=== PATIENT | female | born 1965 | race Hispanic/Latino ===

== ENCOUNTER 2019-02-26 22:31 | Emergency (ER) | payer OTHER ==
[2019-02-26] MEDS ORDERED: ASPIRIN 81MG TAB.CHEW ONE (22:56)
[2019-02-26 23:12] LABS: APPEARANCE,URINE Cloudy (CLEAR); BILIRUBIN,URINE Negative (NEGATIVE); COLOR,URINE Yellow (YELLOW); GLUCOSE, URINE (UA) Negative (NEGATIVE); KETONES,URINE Negative (NEGATIVE); LEUKOCYTE ESTERASE ,URINE Large (NEGATIVE); NITRATE,URINE Negative (NEGATIVE); OCCULT BLOOD,URINE Negative (NEGATIVE); PROTEIN,URINE Negative (NEGATIVE); UROBILINOGEN,URINE 0.2 mg/dL (0.2-1.0)
[2019-02-26 23:19] LABS: BASOPHILS % (AUTO) 0.4 % (0.0-5.0); EOSINOPHILS % (AUTO) 3.4 % (0.0-8.0); LYMPHOCYTES % (AUTO) 32.2 % (21.0-51.0); MEAN CORPUSCULAR HEMOGLOBIN 27.6 pg (27.0-33.0); MEAN CORPUSCULAR HGB CONC 30.9 g/dL (32.0-36.0); MEAN CORPUSCULAR VOLUME 89.4 fL (79-99); MONOCYTES % (AUTO) 5.4 % (3.0-13.0); NEUTROPHILS % (AUTO) 58.3 % (40.0-77.0); PLATELET COUNT (AUTO) 187 K/uL (130-400); RED BLOOD CELL COUNT(AUTO) 4.92 MIL/uL (4.00-5.50); RED CELL DISTRIBUTION WIDTH 13.1 % (11.0-15.5); WHITE BLOOD COUNT (AUTO) 9.5 K/uL (4.8-10.8)
[2019-02-26 23:21] LABS: BACTERIA,URINE Few /HPF (None Seen); RBC,URINE None Seen /HPF (0-1); SQUAMOUS EPITHELIAL CELL,UR Rare /HPF (0-2)
[2019-02-27] MEDS ORDERED: CEPHALEXIN 500 MG CAPSULE ONE
[2019-02-27 00:07] LABS: ALBUMIN 3.7 g/dL (3.5-5.0); BILIRUBIN,TOTAL 0.7 mg/dL (0.2-1.0); CREATININE 0.8 mg/dL (0.5-1.5); POTASSIUM 3.8 mmol/L (3.5-5.1); TOTAL PROTEIN, SERUM 7.9 g/dL (6.0-8.3)
== END 2019-02-27 00:10 | disposition home or self-care (01) ==
LOC: EDH 22:31
DX: N39.0 Urinary tract infection, site not specified (principal); R07.89 Other chest pain; F32.9 Major depressive disorder, single episode, unspecified; I10 Essential (primary) hypertension
CPT/HCPCS: 36415; 71045; 80053; 81001; 82550; 84484; 85025; 93005

== ENCOUNTER 2023-02-24 09:30 | Emergency (ER) | payer MEDICAID ==
[~2023-02-24] VITALS: Ht 157.5 cm; Wt 59.0 kg
[2023-02-24 10:15] LABS: BASOPHILS # (AUTO) 0.02 K/uL (0.00-0.20); BASOPHILS % (AUTO) 0.3 % (0.0-5.0); EOSINOPHILS # (AUTO) 0.08 K/uL (0.00-0.70); EOSINOPHILS % (AUTO) 1.4 % (0.0-8.0); HEMATOCRIT 40.9 % (36-48); IMMATURE GRANULOCYTE ABSOLUTE 0.03 K/uL (0-1); LYMPHOCYTES # (AUTO) 1.3 K/uL (1.0-4.8); LYMPHOCYTES % (AUTO) 21.9 % (21.0-51.0); MEAN CORPUSCULAR HEMOGLOBIN 30.6 pg (27.0-33.0); MEAN CORPUSCULAR HGB CONC 33.3 g/dL (32.0-36.0); MEAN CORPUSCULAR VOLUME 91.9 fL (79-99); MONOCYTES # (AUTO) 0.2 K/uL (0.1-1.0); MONOCYTES % (AUTO) 3.5 % (3.0-13.0); NEUTROPHILS # (AUTO) 4.2 K/uL (1.8-7.7); NEUTROPHILS % (AUTO) 72.4 % (40.0-77.0); PLATELET COUNT (AUTO) 141 K/uL (130-400); RED BLOOD CELL COUNT(AUTO) 4.45 MIL/uL (4.00-5.50); RED CELL DISTRIBUTION WIDTH 12.7 % (11.0-15.5); WHITE BLOOD COUNT (AUTO) 5.8 K/uL (4.8-10.8)
[2023-02-24] MEDS ORDERED: FLUO20TA29 PO (10:18)
[2023-02-24] MEDS ORDERED: TRAZ-187 PO (10:18)
[2023-02-24] MEDS ORDERED: DONE5TAB33 PO (10:18)
[2023-02-24 10:21] LABS: CARBON DIOXIDE 29 mmol/L (21-32); CHLORIDE 107 mmol/L (101-111); CREATININE 0.7 mg/dL (0.5-1.5); GLOMERULAR FILTR. RATE CALC 102 mL/min (>90); GLUCOSE,RANDOM 207 mg/dL (70-105); SODIUM SERUM 143 mmol/L (136-145); UREA NITROGEN, BLOOD 18 mg/dL (7-18)
[2023-02-24 10:31] LABS: ACETAMINOPHEN < 1 mcg/mL (10-30); ALCOHOL, BLOOD < 3 mg/dL (0-10); SALICYLATE < 2.8 mg/dL (2.8-20.0)
[2023-02-24 10:50] LABS: APPEARANCE,URINE CLOUDY (CLEAR); BILIRUBIN,URINE NEGATIVE (NEGATIVE); COLOR,URINE LIGHT-YELLOW (YELLOW); GLUCOSE, URINE (UA) NEGATIVE (NEGATIVE); KETONES,URINE NEGATIVE (NEGATIVE); LEUKOCYTE ESTERASE ,URINE 75 Leu/uL (NEGATIVE); NITRATE,URINE NEGATIVE (NEGATIVE); OCCULT BLOOD,URINE LARGE (NEGATIVE); PH,URINE 7.5 (5.0-8.0); PROTEIN,URINE 10 mg/dL (NEGATIVE); UROBILINOGEN,URINE 0.2 mg/dL (0.2-1.0)
[2023-02-24 10:56] LABS: ADD UA MICROSCOPIC YES
[2023-02-24 11:01] LABS: BACTERIA,URINE FEW /HPF (None Seen); MUCUS,URINE RARE LPF (None Seen); RBC,URINE TNTC /HPF (0-1); SQUAMOUS EPITHELIAL CELL,UR RARE /HPF (0-2); WBC,URINE 26-50 /HPF (0-1)
[2023-02-24 11:31] LABS: AMPHET/METH SCREEN,URINE NEGATIVE (NEGATIVE); BARBITURATE SCREEN, URINE NEGATIVE (NEGATIVE); BENZODIAZEPINES SCREEN,URINE NEGATIVE (NEGATIVE); CANNABINOID SCREEN,URINE NEGATIVE (NEGATIVE); COCAINE SCREEN,URINE NEGATIVE (NEGATIVE); OPIATE SCREEN,URINE NEGATIVE (NEGATIVE); PHENCYCLIDINE SCREEN,URINE NEGATIVE (NEGATIVE)
[2023-02-24 12:55] LABS: SARS-CoV-2, RNA, NAAT NEGATIVE SARS CoV-2 (NEGATIVE)
[2023-02-24 13:00] LABS: INFLUENZA TYPE A Negative For Type A (NEGATIVE); INFLUENZA TYPE B Negative For Type B (NEGATIVE)
[2023-02-24 13:33] LABS: RAPID GROUP A STREP positive (NEGATIVE)
[2023-02-24] MEDS ORDERED: CEPH500B PO (13:47)
[2023-02-24] MEDS ORDERED: CEFTRIAXONE 2GM VIAL ONE (14:10)
[2023-02-24 14:15] VITALS: BP 110/48; PULSE 52; RESP 18; O2SAT 98
== END 2023-02-24 14:57 | disposition home or self-care (01) ==
LOC: EDH 09:30
DX: J02.0 Streptococcal pharyngitis (principal); N39.0 Urinary tract infection, site not specified; F03.90 Unspecified dementia, unspecified severity, without behavioral disturbance, psychotic disturbance, mood disturbance, and anxiety; Z20.822 Contact with and (suspected) exposure to COVID-19
CPT/HCPCS: 99285; 70450; 71045; 87635; 82550; 84484; 80048; 80305; 85025; 87088; 87880; 87804 ×2; 82948; 81001; 36415; 96372; 93005 ×2; C9803; J0696; G0481

== ENCOUNTER 2024-03-20 10:28 | Emergency (ER) | payer MEDICAID ==
[~2024-03-20] VITALS: Ht 162.6 cm; Wt 57.6 kg
[~2024-03-20 10:28] MED LIST: CEPH500B PO; DONE5TAB33 PO; FLUO20TA29 PO; TRAZ-187 PO
[2024-03-20 11:48] LABS: SARS-CoV-2, RNA, NAAT NEGATIVE SARS CoV-2 (NEGATIVE)
[2024-03-20 11:52] LABS: INFLUENZA TYPE A Negative For Type A (NEGATIVE); INFLUENZA TYPE B Negative For Type B (NEGATIVE)
[2024-03-20 12:00] LABS: BASOPHILS # (AUTO) 0.03 K/uL (0.00-0.20); BASOPHILS % (AUTO) 0.3 % (0.0-5.0); EOSINOPHILS # (AUTO) 0.01 K/uL (0.00-0.70); EOSINOPHILS % (AUTO) 0.1 % (0.0-8.0); HEMATOCRIT 37.4 % (36-48); IMMATURE GRANULOCYTE ABSOLUTE 0.02 K/uL (0-1); LYMPHOCYTES # (AUTO) 1.5 K/uL (1.0-4.8); MEAN CORPUSCULAR HEMOGLOBIN 30.5 pg (27.0-33.0); MEAN CORPUSCULAR HGB CONC 33.2 g/dL (32.0-36.0); MEAN CORPUSCULAR VOLUME 91.9 fL (79-99); MONOCYTES # (AUTO) 0.6 K/uL (0.1-1.0); MONOCYTES % (AUTO) 5.8 % (3.0-13.0); NEUTROPHILS # (AUTO) 8.7 K/uL (1.8-7.7); NEUTROPHILS % (AUTO) 79.6 % (40.0-77.0); PLATELET COUNT (AUTO) 176 K/uL (130-400); RED BLOOD CELL COUNT(AUTO) 4.07 MIL/uL (4.00-5.50); RED CELL DISTRIBUTION WIDTH 12.8 % (11.0-15.5); WHITE BLOOD COUNT (AUTO) 10.9 K/uL (4.8-10.8)
--- NOTE | 2024-03-20 12:00 | HMCIMG ---
CHEST 1VW HISTORY: Shortness of breath COMPARISON: 02/24/2023 FINDINGS: A frontal projection of the chest was obtained. Prominent interstitial markings are seen with possible superimposed infiltrates. The heart is borderline enlarged. There is scoliosis. Degenerative changes are seen. Aortic calcifications are seen. IMPRESSION: 1. Prominent interstitial markings are seen with possible superimposed infiltrates.
[2024-03-20 12:30] LABS: B-TYPE NATRIURETIC PEPTIDE 79 pg/mL (0-100)
[2024-03-20 12:42] LABS: CREATININE 0.6 mg/dL (0.5-1.0); POTASSIUM 3.9 mmol/L (3.5-5.1)
[2024-03-20 13:00] LABS: INR 1.02 (0.85-1.15); PROTHROMBIN TIME 11.4 SEC (9.6-11.6)
[2024-03-20 13:01] LABS: PARTIAL THROMBOPLASTIN TIME 29.3 SEC (26.3-35.5)
--- NOTE | 2024-03-20 13:28 | ERN ---
General Chief Complaint: Congestion Stated Complaint: FEVER Time Seen by MD: 10:28 Source: patient History of Present Illness Initial Comments PATIENT IS A 58-YEAR-OLD FEMALE COMING IN TO BE EVALUATED FOR COUGH AND CONGESTION. PER FAMILY MEMBERS PATIENT HAS HAD A COUGH FOR A COUPLE OF DAYS. PATIENT DOES HAVE A HISTORY OF DEMENTIA SO SHE WAS A POOR HISTORIAN. Allergies: Coded Allergies: No Known Drug Allergies (Unverified Allergy, Unknown, 02/27/19) Home Meds Active Scripts Cephalexin Monohydrate (Keflex) 500 Mg Cap, 500 MG PO QID for 10 Days, #40 CAP 0 Refills Prov:VASU CORONA Sr., MD 02/24/23 Reported Medications Trazodone HCl (Trazodone HCl) 100 Mg Tablet, 100 MG PO BID, TAB 02/24/23 Fluoxetine HCl (Fluoxetine HCl) 20 Mg Tablet, 20 MG PO BID, TAB 02/24/23 Donepezil HCl (Donepezil HCl) 5 Mg Tablet, 5 MG PO HS, TAB 02/24/23 Past Medical History Past Medical History: Dementia Medical History Other: ONLY HX EMS COULD GET FROM FAMILY Past Surgical History: Unknown ROS Dictation CONSTITUTIONAL: NO CHILLS, NO FEVER, NO WEAKNESS, NO DIAPHORESIS, NO MALAISE. HEAD/FACE: NO SIGNS OF TRAUMA. EENT: NO EYE PAIN, NO BLURRED VISION, NO TEARING, NO DOUBLE VISION, NO EAR P AIN, NO EAR DISCHARGE, NO NOSE PAIN, NO NASAL CONGESTION, NO THROAT PAIN, NO THROAT SWELLING, NO MOUTH PAIN. RESPIRATORY: NO COUGH, NO ORTHOPNEA, NO SOB, NO STRIDOR, NO WHEEZING. CARDIOVASCULAR: NO CHEST PAIN, NO EDEMA, NO PALPITATIONS, NO SYNCOPE. GASTROINTESTINAL/ABDOMINAL: NO ABDOMINAL PAIN, NO CONSTIPATION, NO DIARRHEA, NO NAUSEA, NO VOMITING. GENITOURINARY: NO ABNORMAL DISCHARGE, NO DYSURIA, NO FREQUENT URINATION, NO HEMATURIA. NO COMPLAINTS OF PAIN IN THE GENITALS. MUSCULOSKELETAL: NO BACK PAIN, NO GOUT, NO JOINT PAIN, NO JOINT SWELLING, NO MUSCLE PAIN, NO MUSCLE STIFFNESS, NO NECK PAIN. INTEGUMENTARY: NO CHANGE IN COLOR, NO CHANGE IN HAIR/NAILS, NO DRYNESS, NO LESION, NO LUMPS, NO RASH. NEUROLOGICAL/PSYCH: NO ANXIETY, NOT DEPRESSED, NO EMOTIONAL PROBLEM, NO HEADACHE, NO NUMBNESS, NO PRE-EXISTING DEFICIT, NO HISTORY OF SEIZURES, NO TREMORS, NO WEAKNESS. HEMATOLOGIC/LYMPHATIC: NOT ANEMIC, NO HISTORY OF BLOOD CLOTS, NO APPARENT BLEEDING, NO BRUISING, GLANDS NOT SWOLLEN. ALL SYSTEMS NEGATIVE, EXCEPT NOTED. Physical Exam Physical Exam Dictation VITAL SIGNS: REVIEWED. GENERAL APPEARANCE: ALERT, ORIENTED X3, NO ACUTE DISTRESS, OBESE. HEAD AND FACE: NON-TRAUMATIC. EYES: PERRL, PINK CONJUNCTIVAS, EYELID NO TRAUMA, ANTERIOR CHAMBER CLEAR. EARS: PINNAS INTACT AND NO SIGNS OF TRAUMA OR ERYTHEMA. EAR CANALS CLEAR AND NO DISCHARGE. TMS NO ERYTHEMA. NOSE: NO DISCHARGE, NO BLEEDING. OROPHARYNX: MOUTH NORMAL, TEETH NO CARIES, TONGUE PINK. PHARYNX CLEAR, NO ERYTHEMA. TONSILS NO EXUDATES, NO ABSCESSES NOTED. MUCOUS MEMBRANE MOIST. NECK: SUPPLE, NON-TENDER, NO THYROMEGALY, NO MASSES, NO JVD, NO BRUITS. BREAST: DEFERRED. CHEST: NO TENDERNESS, NO CREPITUS, NO PARADOXICAL MOVEMENT, NO RETRACTIONS. LUNGS: CLEAR, WELL-VENTILATED, SYMMETRIC, NO RALES, NO WHEEZING, NO RHONCHI, NO STRIDOR, GOOD BREATH SOUNDS BILATERALLY. HEART: REGULAR RATE, REGULAR RHYTHM, NO MURMUR, NO GALLOPS. VASCULAR: NO PERIPHERAL EDEMA. ABDOMEN: SOFT, POSITIVE BOWEL SOUNDS, NONDISTENDED, NO GUARDING, NONTENDER, NO REBOUND, NO MASSES NO HEPATOMEGALY, NO SPLENOMEGALY, NO FRIEND'S SIGN, NO HERNIAS. RECTAL: DEFERRED. GENITAL: DEFERRED. NEUROLOGICAL: NORMAL SPEECH, GROSS MOTOR FUNCTION INTACT, GROSS SENSORY FUNCTION INTACT. MUSCULOSKELETAL: NECK NONTENDER, FULL RANGE OF MOTION, BACK NONTENDER, FULL RANGE OF MOTION. EXTREMITIES: NONTENDER, FULL RANGE OF MOTION. SKIN: COLOR PINK, DRY, NO TURGOR, NO RASH, NO LACERATIONS, NO ABRASIONS, NO CONTUSIONS. LYMPHATICS: DEFERRED. Results Laboratory and Microbiology Lab and Micro Result Laboratory Tests Test 03/20/24 11:05 03/20/24 11:30 03/20/24 12:35 03/20/24 12:39 Influenza Type A Antigen Negative For Type A Influenza Type B Antigen Negative For Type B SARS-CoV-2, RNA, NAAT NEGATIVE SARS CoV-2 White Blood Count 10.9 K/uL (4.8-10.8) H Red Blood Count 4.07 MIL/uL (4.00-5.50) Hemoglobin 12.4 g/dL (12.0-16.0) Hematocrit 37.4 % (36-48) Mean Corpuscular Volume 91.9 fL (79-99) Mean Corpuscular Hemoglobin 30.5 pg (27.0-33.0) Mean Corpuscular Hemoglobin Concent 33.2 g/dL (32.0-36.0) Red Cell Distribution Width 12.8 % (11.0-15.5) Platelet Count 176 K/uL (130-400) Mean Platelet Volume 11.0 fL (7.5-10.5) H Immature Granulocyte % (Auto) 0.2 % (0-1) Neutrophils (%) (Auto) 79.6 % (40.0-77.0) H Lymphocytes (%) (Auto) 14.0 % (21.0-51.0) L Monocytes (%) (Auto) 5.8 % (3.0-13.0) Eosinophils (%) (Auto) 0.1 % (0.0-8.0) Basophils (%) (Auto) 0.3 % (0.0-5.0) Neutrophils # (Auto) 8.7 K/uL (1.8-7.7) H Lymphocytes # (Auto) 1.5 K/uL (1.0-4.8) Monocytes # (Auto) 0.6 K/uL (0.1-1.0) Eosinophils # (Auto) 0.01 K/uL (0.00-0.70) Basophils # (Auto) 0.03 K/uL (0.00-0.20) Absolute Immature Granulocyte (auto 0.02 K/uL (0-1) Nucleated Red Blood Cells 0.0 % (0.0-0.19) Sodium Level 144 mmol/L (136-145) Potassium Level 3.9 mmol/L (3.5-5.1) Chloride Level 106 mmol/L (101-111) Carbon Dioxide Level 33 mmol/L (21-32) H Blood Urea Nitrogen 20 mg/dL (7-18) H Creatinine 0.6 mg/dL (0.5-1.0) Glomerular Filtration Rate Calc 105 mL/min (>90) Random Glucose 75 mg/dL (70-105) Total Calcium 9.0 mg/dL (8.5-10.1) Total Creatine Kinase 83 U/L (21-232) # Troponin I High Sensitivity < 4 ng/L (4-50) L B-Type Natriuretic Peptide 79 pg/mL (0-100) Prothrombin Time 11.4 SEC (9.6-11.6) Prothromb Time International Ratio 1.02 (0.85-1.15) Activated Partial Thromboplast Time 29.3 SEC (26.3-35.5) Group A Streptococcus Rapid NEGATIVE (NEGATIVE) Test 03/20/24 14:17 Urine Color YELLOW (YELLOW) Urine Appearance CLOUDY (CLEAR) H Urine pH 6.5 (5.0-8.0) Urine Specific [place] 1.024 (1.001-1.031) Urine Protein 30 mg/dL (NEGATIVE) H Urine Glucose (UA) NEGATIVE mg/dL (NEGATIVE) Urine Ketones NEGATIVE mg/dL (NEGATIVE) Urine Occult Blood NEGATIVE (NEGATIVE) Urine Nitrate 1+ (NEGATIVE) H Urine Bilirubin NEGATIVE mg/dL (NEGATIVE) Urine Urobilinogen 0.2 mg/dL (0.2-1.0) Urine Leukocyte Esterase 500 Kris/uL (NEGATIVE) H Urine RBC 2-5 /HPF (0-1) H Urine WBC TNTC /HPF (0-1) H Urine Bacteria MANY /HPF (None Seen) Urine Hyaline Casts 6-10 /LPF (0-1 /LPF) H Labs Reviewed?: Yes EKG/XRAY/US/CT/MRI X-RAY Comment [id number] [id number] IMAGING REPORT Signed PATIENT: ODETTE JIMENEZ MR#: [id number] : 1965 SEX: F AGE: 58 LOCATION: [facility] ORDER [id number] STATUS: REG REPORT#: [id number] SERVICE 1100 REASON: SOB ORDERING PHYSICIAN: MARTIN WISEMAN MD PROCEDURE: CXR1VW - CHEST 1VW CHEST 1VW HISTORY: Shortness of breath COMPARISON: 02/24/2023 FINDINGS: A frontal projection of the chest was obtained. Prominent interstitial markings are seen with possible superimposed infiltrates. The heart is borderline enlarged. There is scoliosis. Degenerative changes are seen. Aortic calcifications are seen. IMPRESSION: 1. Prominent interstitial markings are seen with possible superimposed infiltrates. DICTATED BY: BLAS MONTE MD DATE: 03/20/24 1157 ELECTRONICALLY SIGNED BY: BLAS MONTE MD DATE: 03/20/24 1200 MDM MDM: DIFFERENTIAL DIAGNOSIS: URI, UTI, SINUSITIS PATIENT IS A 58-YEAR-OLD FEMALE COMING IN TO BE EVALUATED FOR URI SYMPTOMS. LABORATORY WORKUP NEGATIVE FOR ACUTE FINDINGS. PATIENT DID PRESENT WITH A URINARY TRACT INFECTION I YEAR A. PATIENT WILL BE DISCHARGED WITH A DIAGNOSIS OF SINUSITIS WITH THE URI UTI. ED Course Orders Procedure Category Date Status Time Cbc With Differential LAB 03/20/24 Complete 11:00 Prothrombin Time With LAB 03/20/24 Complete INR 11:00 B-Type Natriuretic LAB 03/20/24 Complete Peptide 11:00 Chest 1vw RAD 03/20/24 Resulted 11:00 12 Lead Ekg Tracing- EKG 03/20/24 Logged Technical 11:00 Creatine Kinase, Total LAB 03/20/24 Complete 11:00 Troponin I High LAB 03/20/24 Complete Sensitivity 11:00 Urinalysis Profile LAB 03/20/24 Complete 11:00 Partial LAB 03/20/24 Complete Thromboplastin Time 11:00 Basic Metabolic Panel LAB 03/20/24 Complete 11:00 Covid Rna Naat LAB 03/20/24 Complete 11:00 Influenza Type A & B, LAB 03/20/24 Complete Rapid 11:00 Rapid (Group A Strep) LAB 03/20/24 Complete 11:28 Ipratropium/Albuterol PHA 03/20/24 Complete Neb (Duoneb) 13:30 Culture Urine WILLEM 03/20/24 Logged 15:09 Current Medications Medications (Trade) Dose Ordered Sig/Leticia Route PRN Reason Start Time Stop Time Status Last Admin Dose Admin Albuterol (DUOneb) 2 udvial ONCE ONCE IH 03/20/24 13:30 03/20/24 13:31 DC 03/20/24 13:46 Vital Signs Date Time Temp Pulse Resp B/P (MAP) Pulse Ox O2 Delivery O2 Flow Rate FiO2 03/20/24 13:46 49 41 03/20/24 12:45 50 18 137/59 99 Room Air* 0 21 03/20/24 10:56 97.9 61 22 159/139 94 Room Air* 0 N/A CPAP+ 03/20/24 10:56 97.9 61 22 159/139 94 Room Air 0 DX & DISP Disposition: Discharge Departure Impression: Primary Impression: UTI (urinary tract infection) Additional Impression: URI (upper respiratory infection) Condition: Stable Scripts Albuterol Sulfate (Ventolin Hfa) 90 Mcg Hfa.aer.ad 2 PUFF IH Q4HPRN PRN for wheezing for 30 Days, #18 GM 0 Refills Prov: MARTIN WISEMAN MD 03/20/24 Fluticasone Propionate (Flonase Nasal [place]) 50 Mcg/Actuation [place] 2 SPRAY NS DAILY, #16 GM 0 Refills Prov: MARTIN WISEMAN MD 03/20/24 Amoxicillin/Potassium Clav (Amox Tr-K Clv 875-125 mg Tab) 875 Mg-125 Mg Tablet 1 TAB PO BID for 10 Days, #20 TAB 0 Refills Prov: MARTIN WISEMAN MD 03/20/24 Additional Instructions: FOLLOW-UP WITH PRIMARY CARE PROVIDER IN 1 TO 2 DAYS. TAKE MEDICATIONS DIRECTED HERE IN THE EMERGENCY ROOM. OKAY TO CONTINUE HOME MEDICATIONS UNLESS OTHERWISE DISCUSSED DURING YOUR VISIT IN THE EMERGENCY ROOM TODAY. RETURN TO YOUR NEAREST EMERGENCY ROOM IF SYMPTOMS WORSEN OR IF THERE IS NO IMPROVEMENT. CALL 911 IF YOU NEED IMMEDIATE ASSISTANCE. TAKE TYLENOL [id number] NEEDED AND IF NO CONTRAINDICATIONS ARE PRESENT. INCREASE ORAL HYDRATION. A WOUND CULTURE OR URINE CULTURE WAS ORDERED HERE IN THE EMERGENCY ROOM DEPARTMENT PLEASE FOLLOW-UP WITH PRIMARY CARE PROVIDER AND ADVISE THEM TO GET REPEAT PORTS FROM OUR FACILITY. IF YOU HAD ANY GINGER WRAP/SPLINTS THAT WERE APPLIED HERE, PLEASE DO NOT REMOVE THEM UNTIL YOU SEE YOUR PRIMARY CARE OR SPECIALTY. REFERRALS: Referrals: RAJIV SU MD (PCP) Time of Disposition: 15:20 MARTIN WISEMAN MD Mar 20, 2024 13:28
[2024-03-20 13:46] VITALS: PULSE 49; RESP 41
[2024-03-20] MEDS: IpraTROPium/alBUTERol SULFATE 3 ML SOLUTION IH ONE (13:46)
[2024-03-20 14:52] LABS: APPEARANCE,URINE CLOUDY (CLEAR); BILIRUBIN,URINE NEGATIVE (NEGATIVE); COLOR,URINE YELLOW (YELLOW); GLUCOSE, URINE (UA) NEGATIVE (NEGATIVE); KETONES,URINE NEGATIVE (NEGATIVE); LEUKOCYTE ESTERASE ,URINE 500 Leu/uL (NEGATIVE); NITRATE,URINE 1+ (NEGATIVE); OCCULT BLOOD,URINE NEGATIVE (NEGATIVE); PH,URINE 6.5 (5.0-8.0); PROTEIN,URINE 30 mg/dL (NEGATIVE); UROBILINOGEN,URINE 0.2 mg/dL (0.2-1.0)
[2024-03-20 15:09] LABS: ADD UA MICROSCOPIC YES
[2024-03-20 15:11] LABS: BACTERIA,URINE MANY /HPF (None Seen); MUCUS,URINE MANY LPF (None Seen); WBC,URINE TNTC /HPF (0-1)
[2024-03-20] MEDS ORDERED: ALBU18HF7 IH (15:21)
[2024-03-20] MEDS ORDERED: FLUT16H NS (15:21)
[2024-03-20] MEDS ORDERED: AMOX1TAB16 PO (15:21)
[2024-03-20 15:36] VITALS: BP 132/58; PULSE 52; RESP 17; TEMP 97.8; O2SAT 99
--- NOTE | 2024-03-20 19:56 | EKG ---
[facility] Test Date: 2024-03-20 Test Time: 12:04:01 Pat Name: ODETTE JIMENEZ Department: ED Room: Gender: F Palliative Medicine Physician: [id number] : 1965 Requested By: MARTIN WISEMAN Order Number: [id number] Reading MD: Chris Schneider Measurements Intervals [place] Rate: 45 P: 39 AL: 136 QRS: 16 QRSD: 98 T: 42 QT: 465 QTc: 404 Interpretive Statements Sinus bradycardia Compared to ECG 02/24/2023 12:19:40 Left ventricular hypertrophy no longer present ST (T wave) deviation no longer present Electronically Signed On 03-23-2024 21:25:28 LABORATORY CLERK by Chris Schneider Please click the below link to view image of tracing.
== END 2024-03-20 15:33 | disposition home or self-care (01) ==
LOC: EDH 10:28
DX: J06.9 Acute upper respiratory infection, unspecified (principal); N39.0 Urinary tract infection, site not specified; F03.90 Unspecified dementia, unspecified severity, without behavioral disturbance, psychotic disturbance, mood disturbance, and anxiety; Z20.822 Contact with and (suspected) exposure to COVID-19; Z79.01 Long term (current) use of anticoagulants; Z79.899 Other long term (current) drug therapy
CPT/HCPCS: 36415; 71045; 80048; 81001; 82550; 83880; 84484; 85025; 85610; 85730; 87086; 87186; 87635; 87804; 87880; 93005; 94640; 99285